=== PATIENT | female | born 1990 | race Caucasian/White ===

== ENCOUNTER 2018-08-18 05:15 | Inpatient (IN) | payer BC ==
[2018-08-18] MEDS ORDERED: ONDANSETRON HCL IV 4 MG/2 ML VIAL IVP ONE (05:40)
[2018-08-18] MEDS ORDERED: MORPHINE SULFATE 10 MG/ML VIAL IVP ONE (05:40)
[2018-08-18 05:44] LABS: BASO % 0.2 % (0-6); EOS % 0.8 % (0-6); GRAN % 77.8 % (47-80); HEMATOCRIT 42.4 % (35.0-47.0); HEMOGLOBIN 15.2 gm/dl (11.6-16.0); LYMPH % 14.3 % (16-45); MEAN CELL VOLUME 90.8 fl (81-97); MEAN CORPUSCULAR HEMOGLOBIN 32.5 pg (27-33); MEAN CORPUSCULAR HGB CONC 35.8 g/dl (32-36); MEAN PLATELET VOLUME 9.3 fl (7.4-10.4); MONO % 6.9 % (0-9); PLATELET COUNT 333 K/uL (130-400); RED BLOOD COUNT 4.67 M/uL (3.80-5.40); RED CELL DISTRIBUTION WIDTH 12.5 % (11.5-14.5); WHITE BLOOD COUNT W/O DIFF 13.9 K/uL (4.2-12.2)
[2018-08-18] MEDS ORDERED: 0.9 % SODIUM CHLORIDE 1000ML 1,000 ML IV SCH (05:45)
--- NOTE | 2018-08-18 05:45 | Emergency Department Record ---
History of Present Illness - General Chief Complaint: Abdominal Pain Stated Complaint: ABDOMINAL PAIN Time Seen by Provider: 08/18/18 05:36 Source: Patient Mode of Arrival: Ambulatory Limitations: No limitations - History of Present Illness Initial Comments: 28 yo female presents to ED for evaluation of RUQ abdominal pain that began approximately 6 hours ago associated with loose stools. Patient denies fevers, chills, or urinary symptoms, reports history of previous cholecystectomy. Patient denies health problems at her baseline and denies previous history of kidney stones. MD Complaint: Abdominal pain Onset/Timin -: Hour(s) Location: RUQ Radiation: Back, Chest, Other Severity scale (1-10): 9 Quality: Fullness Consistency: Constant, Getting worse Improves With: Nothing Worsens With: Movement Associated Symptoms: Nausea - Related Data Patient : No Home Medications Medication Instructions Recorded Confirmed Last Taken Diclofenac Sodium 1 applic TOP DAILY PRN 08/18/18 08/18/18 Unknown Duloxetine HCl [Cymbalta] 60 mg PO DAILY 08/18/18 08/18/18 Unknown Hydroxyzine HCl 25 mg PO BID 08/18/18 08/18/18 Unknown Propranolol HCl 40 mg PO BID 08/18/18 08/18/18 Unknown Previous Rx's Medication Instructions Recorded Hyoscyamine Sulfate [Levsin-Sl] 0.25 mg SL Q8H PRN #15 tab.subl 08/18/18 Allergies Allergy/AdvReac Type Severity Reaction Status Date / Time amoxicillin Allergy HIVES Verified 08/18/18 05:23 clavulanic acid Allergy HIVES Verified 08/18/18 05:23 [From Augmentin] Travel Screening - Travel/Exposure Within Last 30 Days Have you traveled within the last 30 days?: No - Travel Symptoms Symptom Screening: None Review of Systems Constitutional: Denies: Chills, Fever, Malaise, Night sweats Eyes: Denies: Eye discharge, Eye pain ENT: Denies: Congestion, Ear pain, Epistaxis Respiratory: Denies: Cough, Dyspnea Cardiovascular: Denies: Chest pain, Dyspnea on exertion Endocrine: Denies: Fatigue, Heat or cold intolerance Gastrointestinal: Reports: Abdominal pain, Diarrhea, Nausea. Denies: Vomiting Genitourinary: Denies: Incontinence, Retention Musculoskeletal: Reports: Back pain. Denies: Arthralgia Skin: Denies: Bruising, Change in color Neurological: Denies: Abnormal gait, Confusion, Headache, Seizure Psychiatric: Denies: Anxiety Hematological/Lymphatic: Denies: Anemia, Blood Clots Past Medical History - SOCIAL HISTORY Smoking Status: Never smoker Alcohol Use: Occasional Drug Use: None - RESPIRATORY Hx Respiratory Disorders: No - CARDIOVASCULAR Hx Cardio Disorders: No - NEURO Hx Neuro Disorders: Yes Hx Headaches: Yes - GI Hx GI Disorders: No - Hx Genitourinary Disorders: Yes Comment:: Ovarian cysts - MUSCULOSKELETAL Hx Musculoskeletal Disorders: Yes Hx Fibromyalgia: Yes Comment:: HODGE - PSYCH Hx Psych Problems: Yes Hx Anxiety: Yes Hx Depression: Yes - HEMATOLOGY/ONCOLOGY Hx Hematology/Oncology Disorders: No Family Medical History Any Significant Family History?: Yes Hx HTN: Father, Grandparents Physical Exam - General General Appearance: Alert, Oriented x3, Cooperative, Moderate distress (appears uncomfortable due to her pain symptoms) Limitations: No limitations - Head Head exam: Atraumatic, Normocephalic, Normal inspection Head exam detail: negative: Abrasion, Contusion, Macias's sign, General tenderness, Hematoma, Laceration - Eye Eye exam: Normal appearance. negative: Conjunctival injection, Periorbital swelling, Periorbital tenderness, Scleral icterus - ENT Ear exam: negative: Auricular hematoma, Auricular trauma Nasal Exam: negative: Active bleeding, Discharge, Dried blood, Foreign body Mouth exam: negative: Drooling, Laceration, Muffled voice, Tongue elevation - Neck Neck exam: Normal inspection. negative: Meningismus, Tenderness - Respiratory Respiratory exam: Normal lung sounds bilaterally. negative: Rales, Respiratory distress, Rhonchi, Stridor - Cardiovascular Cardiovascular Exam: Regular rate, Normal rhythm, Normal heart sounds - GI/Abdominal GI/Abdominal exam: Soft, Tenderness (TTP RUQ, epigastric region on examination) . negative: Rebound, Rigid - Rectal Rectal exam: Deferred - exam: Deferred - Extremities Extremities exam: Normal inspection. negative: Pedal edema, Tenderness - Back Back exam: Denies: CVA tenderness (R), CVA tenderness (L) - Neurological Neurological exam: Alert, Normal gait, Oriented X3 - Psychiatric Psychiatric exam: Normal affect, Normal mood - Skin Skin exam: Normal color. negative: Abrasion Type of lesion: negative: abrasion Course Vital Signs 08/18/18 05:21 Pulse Rate [ 105 H Pulse Ox Probe] Respiratory 24 Rate Blood Pressure 159/129 [Left Arm] Pulse Ox 94 L - Reevaluation(s) Reevaluation #1: 08/18/18 06:08 Laboratory studies were reviewed, WBC 13.9, labs are otherwise grossly unremarkable for an acute process. Reevaluation #2: 08/18/18 06:36 CT Abdomen and Pelvis: Mildly prominent non-specific fluid-filled loops of bowel without bowel wall thickening Findings are c/w enteritis No loculated fluid collection is present Patient was updated on her results, reports improvement in her symptoms. Will await UA result and reassess. Reevaluation #3: 08/18/18 07:27 Urinalysis was reviewed and appears negative for an acute process. Patient reports that her pain and nausea symptoms are beginning to return, will discuss admission with Meg Prieto NP. Reevaluation #4: 08/18/18 07:46 Case was discussed with Meg Prieto NP, will accept admission at this time. Medical Decision Making - Lab Data Result diagrams: 08/18/18 05:28 08/18/18 05:28 Disposition Disposition: Admit Clinical Impression: Enteritis Disposition: Still a Patient at [facility] Decision to Admit: Admit from ER Decision to Admit Date: 08/18/18 Decision to Admit Time: 07:30 Condition: (2) Stable Instructions: Enteritis (ED) Prescriptions: Hyoscyamine Sulfate [Levsin-Sl] 0.25 mg SL Q8H PRN #15 tab.subl PRN Reason: Abdominal Pain Forms: Patient Portal Access Time of Disposition: 07:47 Quality - Quality Measures Quality Measures: N/A - Blood Pressure Screening Does Patient Have Any of the Following: No Blood Pressure Classification: Pre-Hypertensive BP Reading Systolic Measurement: 124 Diastolic Measurement: 84 Screening for High Blood Pressure: < Pre-Hypertensive BP, F/U Documented > [ [id number]] Pre-Hypertensive Follow-up Interventions: Referral to alternative/primary care provider.
[2018-08-18 05:57] LABS: BLOOD UREA NITROGEN 15 mg/dL (6-20); CREATININE 0.7 mg/dL (0.5-0.9); EST GLOMERULAR FILTRATION RATE > 60 mL/min
[2018-08-18 05:58] LABS: LIPASE 39 U/L (13-60); TOTAL PROTEIN 7.9 g/dL (6.6-8.7)
[2018-08-18 06:00] LABS: GLUCOSE,RANDOM 97 mg/dL (74-109)
[2018-08-18 06:03] LABS: ALB/GLOB RATIO 1.4 (1.1-1.8); ALBUMIN 4.6 g/dL (4.0-5.0); ALKALINE PHOSPHATASE 67 U/L (45-87); ALT/SGPT 20 U/L (<33); AST/SGOT 19 U/L (10.0-35.0)
[2018-08-18] MEDS ORDERED: HYDROMORPHONE HCL 2 MG/ML VIAL IVP ONE ×2 (06:17→07:33)
[2018-08-18 07:25] LABS: URINE APPEARANCE CLEAR; URINE BILIRUBIN NEGATIVE (NEGATIVE); URINE BLOOD NEGATIVE (NEGATIVE); URINE COLOR YELLOW; URINE GLUCOSE (UA) NEGATIVE (NEGATIVE); URINE KETONE NEGATIVE (NEGATIVE); URINE LEUKOCYTE ESTERASE NEGATIVE (NEGATIVE); URINE NITRITE NEGATIVE (NEGATIVE); URINE PROTEIN NEGATIVE (NEGATIVE); URINE UROBILINOGEN 0.2 E.U./dL (0.20 - 1.00)
[2018-08-18 07:26] LABS: HCG,QUALITATIVE URINE NEGATIVE (NEGATIVE)
[2018-08-18] MEDS ORDERED: HYDROMORPHONE HCL 2 MG/ML VIAL IV PRN (09:10)
[2018-08-18] MEDS: ONDANSETRON HCL IV 4 MG/2 ML VIAL IVP PRN ×3 (09:21→16:30)
[2018-08-18] MEDS: 0.9 % SODIUM CHLORIDE 1000ML 1,000 ML IV PRN ×2 (09:26→22:23)
--- NOTE | 2018-08-18 11:39 | History & Physical ---
History of Present Illness - Date of Service Date of Service for History & Physical: 08/18/18 - History of Present Illness Admitting Diagnosis: Abdominal pain. Enteritis History of Present Illness: 28 year old female patient presented to ED with acute onset RUQ and epigastric abdominal pain. Patient reported that the pain began around 11pm with one episode of loose, watery stool. Patient reported feeling "off" all day yesterday, with no specific complaints. Denies any fever, chills, urinary symptoms, nausea, or shortness of breath. Patient had no episodes of vomiting. Patient's past medical history includes a cholecystectomy at age 17, postural tachycardia syndrome, anxiety, and depression PCP: Dr. Kelly ED Course: WBC 13.9, lipase 39, electrolytes WNL CT Abd/Pelvis: mildly prominent non-specific fluid-filled loops of bowel without bowel wall thickening consistent with enteritis, no loculated fluid collection. No biliary duct stones, pancreas nml Pain did not improve with Morphine, received Dilaudid 0.5mg x 2 08/18/18: Patient A&O x 4, resting comfortably on bed with mother at bedside. Patient had 1 episode of vomiting this morning, received Zofran IVP. Continues to have RUQ pain to palpation 01/27, will continue with pain control with Dilaudid 0.5mg IVP prn. IV fluids for hydration and will continue to monitor at this time. Travel Screening - Travel/Exposure Within Last 30 Days Have you traveled within the last 30 days?: No - Travel/Exposure Within Last Year Have you traveled outside the [place] in the last year?: No - Additonal Travel Details Have you been exposed to anyone with a communicable illness?: No - Travel Symptoms Symptom Screening: Diarrhea, Vomiting, Stomach Pain Review of Systems Reviewed: No additional complaints except as noted below Constitutional: Denies: Chills, Fever, Malaise, Night sweats Eyes: Denies: Eye discharge, Eye pain ENT: Denies: Congestion, Ear pain, Epistaxis Respiratory: Denies: Cough, Dyspnea Cardiovascular: Denies: Chest pain, Dyspnea on exertion Endocrine: Denies: Fatigue, Heat or cold intolerance Gastrointestinal: Reports: Abdominal pain, Diarrhea, Nausea. Denies: Vomiting Genitourinary: Denies: Incontinence, Retention Musculoskeletal: Reports: Back pain. Denies: Arthralgia Skin: Denies: Bruising, Change in color Neurological: Denies: Abnormal gait, Confusion, Headache, Seizure Psychiatric: Denies: Anxiety Hematological/Lymphatic: Denies: Anemia, Blood Clots Past Medical History - SOCIAL HISTORY Smoking Status: Never smoker - RESPIRATORY Hx Respiratory Disorders: No - CARDIOVASCULAR Hx Cardio Disorders: Yes Comment:: POTS-postural tachycardia syndrome - NEURO Hx Neuro Disorders: Yes Hx Headaches: Yes - GI Hx GI Disorders: No - Hx Genitourinary Disorders: Yes Comment:: Ovarian cysts - ENDOCRINE Hx Endocrine Disorders: No - MUSCULOSKELETAL Hx Musculoskeletal Disorders: Yes Hx Fibromyalgia: Yes Comment:: HODGE - PSYCH Hx Psych Problems: Yes Hx Anxiety: Yes Hx Depression: Yes - HEMATOLOGY/ONCOLOGY Hx Hematology/Oncology Disorders: No Family Medical History Any Significant Family History?: Yes Hx HTN: Father, Grandparents H&P Meds/Allergies - Allergies Allergies: Allergies Allergy/AdvReac Type Severity Reaction Status Date / Time amoxicillin Allergy HIVES Verified 08/18/18 05:23 clavulanic acid Allergy HIVES Verified 08/18/18 05:23 [From Augmentin] - Home Medications Home Medications Medication Instructions Recorded Confirmed Last Taken Diclofenac Sodium 1 applic TOP DAILY PRN 08/18/18 08/18/18 Unknown Duloxetine HCl [Cymbalta] 60 mg PO DAILY 08/18/18 08/18/18 Unknown Hydroxyzine HCl 25 mg PO BID 08/18/18 08/18/18 Unknown Propranolol HCl 40 mg PO BID 08/18/18 08/18/18 Unknown Previous Rx's Medication Instructions Recorded Hyoscyamine Sulfate [Levsin-Sl] 0.25 mg SL Q8H PRN #15 tab.subl 08/18/18 - Active Medications Active Medications: Current Medications Duloxetine HCl (Cymbalta) 60 mg PO DAILY [facility] Hydromorphone HCl (Dilaudid) 0.5 mg IV Q2H PRN PRN Reason: ABDOMINAL PAIN Hydroxyzine Pamoate (Vistaril) 25 mg PO BID [facility] Sodium Chloride () 1,000 mls @ 100 mls/hr IV .Q10H PRN PRN Reason: LARGE VOLUME IV Last Admin: 08/18/18 09:26 Dose: 100 mls/hr Ondansetron HCl (Zofran) 4 mg IVP Q4H PRN PRN Reason: NAUSEA Last Admin: 08/18/18 09:21 Dose: 4 mg Propranolol HCl (Inderal) 40 mg PO BID [facility] Ranitidine HCl (Zantac) 150 mg PO DAILY [facility] Physical Exam - Vital Signs Vital Signs: Vital Signs - Last 24 Hrs Temp Pulse Resp BP Pulse Ox 08/18/18 09:00 98.0 F 96 H 18 121/81 94 L 08/18/18 08:58 97.6 F 96 H 20 123/87 99 08/18/18 07:40 98 H 18 124/84 100 08/18/18 06:58 93 H 16 121/83 100 08/18/18 06:16 97.6 F 85 24 126/79 100 08/18/18 05:21 105 H 24 159/129 94 L - General General Appearance: Alert, Oriented x3, Cooperative, No acute distress Limitations: No limitations - Head Head exam: Atraumatic, Normocephalic, Normal inspection Head exam detail: negative: Abrasion, Contusion, Macias's sign, General tenderness, Hematoma, Laceration - Eye Eye exam: Normal appearance. negative: Conjunctival injection, Periorbital swelling, Periorbital tenderness, Scleral icterus - ENT ENT exam: Mucous membranes moist Ear exam: negative: Auricular hematoma, Auricular trauma Nasal Exam: negative: Active bleeding, Discharge, Dried blood, Foreign body Mouth exam: Normal external inspection. negative: Drooling, Laceration, Muffled voice, Tongue elevation - Neck Neck exam: Normal inspection. negative: Meningismus, Tenderness - Respiratory Respiratory exam: Normal lung sounds bilaterally. negative: Rales, Respiratory distress, Rhonchi, Stridor - Cardiovascular Cardiovascular Exam: Regular rate, Normal rhythm, Normal heart sounds Peripheral Pulses: 2+: Radial (R), Radial (L), Dorsalis Pedis (R), Dorsalis Pedis (L) - GI/Abdominal GI/Abdominal exam: Soft, Tenderness (TTP RUQ, epigastric region on examination) . negative: Rebound, Rigid - Rectal Rectal exam: Deferred - exam: Deferred - Extremities Extremities exam: Normal inspection. negative: Pedal edema, Tenderness - Back Back exam: Denies: CVA tenderness (R), CVA tenderness (L) - Neurological Neurological exam: Alert, Normal gait, Oriented X3 - Psychiatric Psychiatric exam: Normal affect, Normal mood - Skin Skin exam: Normal color. negative: Abrasion Type of lesion: negative: abrasion Results - Labs Result Diagrams: 08/18/18 05:28 08/18/18 05:28 Labs Last 24 Hours: Laboratory Results - last 24 hr 08/18/18 08/18/18 08/18/18 05:28 05:28 07:15 WBC 13.9 H RBC 4.67 Hgb 15.2 Hct 42.4 MCV 90.8 MCH 32.5 MCHC 35.8 RDW 12.5 Plt Count 333 MPV 9.3 Gran % 77.8 Lymphocytes % 14.3 L Monocytes % 6.9 Eosinophils % 0.8 Basophils % 0.2 Sodium 137 Potassium 4.5 Chloride 103 Carbon Dioxide 18.0 L Anion Gap 16.0 BUN 15 Creatinine 0.7 Estimated GFR > 60 Random Glucose 97 Calcium 9.8 Total Bilirubin 0.40 AST 19 ALT 20 Alkaline Phosphatase 67 Total Protein 7.9 Albumin 4.6 Globulin 3.3 Albumin/Globulin Ratio 1.4 Lipase 39 Urine Color Yellow Urine Appearance Clear Urine pH 7.5 Ur Specific [place] <= 1.005 Urine Protein Negative Urine Glucose (UA) Negative Urine Ketones Negative Urine Blood Negative Urine Nitrite Negative Urine Bilirubin Negative Urine Urobilinogen 0.2 Ur Leukocyte Esterase Negative Urine HCG, Qual Negative VTE H&P Assessment - Risk for VTE Risk for VTE: No Risk Level: Low Risk Assessment Date: 08/18/18 Risk Assessment Time: 11:42 VTE Orders Placed or Will Be Placed: No VTE Reason for No Prophylaxis: Not Indicated Plan - Detailed Diagnosis and Plan (1) Enteritis Current Visit: Yes Status: Acute Base Code: K52.9 - NONINFECTIVE GASTROENTERITIS AND COLITIS, UNSPECIFIED Comment: 08/18/18: RUQ and epigastric abdominal pain with 1 episode of diarrhea -Abd/pelvic CT: fluid-filled loops of bowel consistent with enteritis -WBC 13.9, lipase 39, electrolytes WNL -Continue pain control with Dilaudid 0.5mg q2h prn -Zofrn 4mg IVP prn q6h nausea -Clear liquids (2) DVT prophylaxis Current Visit: Yes Status: Acute Base Code: [id number] - Comment: 08/18/18: -Low risk due to age and anticipated short duration of hospitalization -Encourage continued ambulation (3) Full code status Current Visit: Yes Status: Acute Base Code: Z78.9 - OTHER SPECIFIED HEALTH STATUS Comment: 08/18/18: Full code status
--- NOTE | 2018-08-18 12:30 | CT SCAN REPORT ---
EXAM: CT SCAN OF THE ABDOMEN AND PELVIS WITH CONTRAST HISTORY: RIGHT UPPER QUADRANT ABDOMINAL PAIN SINCE 11:00 P.M. YESTERDAY. TECHNIQUE: Standard CT imaging of the abdomen and pelvis was performed with intravenous contrast. 100 ml of Omnipaque 300 were administered. Comparison: 03/10/18. FINDINGS: The lung bases are clear. The liver parenchyma is normal. The gallbladder is surgically absent. There is minor prominence of the intrahepatic biliary tree which is likely physiologic status post cholecystectomy. There are no calcified biliary duct stones. The pancreas is normal. The spleen, adrenal glands, kidneys and ureters are normal. The aorta is normal in caliber. There is no retroperitoneal lymphadenopathy. The stomach is mildly distended with ingested fluid and foot material. There are no focal abnormalities. Fluid filled small bowel loops are present within the mid abdomen and pelvis. The colon is also fluid filled from the cecum through the splenic flexure regions. There is no associated bowel wall thickening or inflammation. There is no pneumoperitoneum or ascites. The uterus and adnexa appear normal. The urinary bladder is unremarkable. The abdominal wall is normal. There are no acute osseous abnormalities. IMPRESSION: 1. NO ACUTE INTRAABDOMINAL PATHOLOGY. 2. FLUID FILLED LARGE AND SMALL BOWEL LOOPS WHICH MAY INDICATE ENTERITIS. THERE ARE NO ASSOCIATED INFLAMMATORY CHANGES. 3. STATUS POST CHOLECYSTECTOMY. JOB NUMBER: [id number] [facility]
[2018-08-18] MEDS: HYDROMORPHONE HCL 2 MG/ML VIAL IV PRN ×3 (12:54→19:51)
[2018-08-18] MEDS: DULOXETINE HCL 30 MG CAPSULE.DR PO SCH (13:00)
[2018-08-18] MEDS: PROPRANOLOL HCL 10 MG TABLET PO SCH ×2 (13:01→22:21)
[2018-08-18] MEDS: RANITIDINE HCL 150 MG TABLET PO SCH (13:01)
[2018-08-18] MEDS: HYDROXYZINE PAMOATE 25 MG CAPSULE PO SCH ×2 (13:01→22:21)
[2018-08-18] MEDS: METOCLOPRAMIDE HCL 10 MG/2 ML VIAL IVP PRN (19:47)
[2018-08-19] MEDS: ONDANSETRON HCL IV 4 MG/2 ML VIAL IVP PRN ×4 (02:21→19:30)
[2018-08-19] MEDS: HYDROMORPHONE HCL 2 MG/ML VIAL IV PRN ×5 (02:22→19:25)
[2018-08-19] MEDS: 0.9 % SODIUM CHLORIDE 1000ML 1,000 ML IV PRN ×2 (05:31→16:28)
[2018-08-19 06:50] LABS: BASO % 0.2 % (0-6); EOS % 0.7 % (0-6); GRAN % 72.4 % (47-80); HEMATOCRIT 36.6 % (35.0-47.0); HEMOGLOBIN 12.3 gm/dl (11.6-16.0); LYMPH % 17.4 % (16-45); MEAN CELL VOLUME 93.4 fl (81-97); MEAN CORPUSCULAR HEMOGLOBIN 31.4 pg (27-33); MEAN CORPUSCULAR HGB CONC 33.6 g/dl (32-36); MEAN PLATELET VOLUME 9.4 fl (7.4-10.4); MONO % 9.3 % (0-9); PLATELET COUNT 234 K/uL (130-400); RED BLOOD COUNT 3.92 M/uL (3.80-5.40); RED CELL DISTRIBUTION WIDTH 12.6 % (11.5-14.5); WHITE BLOOD COUNT W/O DIFF 4.6 K/uL (4.2-12.2)
[2018-08-19 07:08] LABS: ALB/GLOB RATIO 1.3 (1.1-1.8); ALBUMIN 3.3 g/dL (4.0-5.0); ALKALINE PHOSPHATASE 103 U/L (45-87); ALT/SGPT 115 U/L (<33); AST/SGOT 114 U/L (10.0-35.0); BLOOD UREA NITROGEN 5 mg/dL (6-20); CREATININE 0.6 mg/dL (0.5-0.9); EST GLOMERULAR FILTRATION RATE > 60 mL/min; GLUCOSE,RANDOM 111 mg/dL (74-109); TOTAL PROTEIN 5.9 g/dL (6.6-8.7)
[2018-08-19] MEDS ORDERED: DICYCLOMINE HCL 10 MG CAPSULE PO PRN (09:06)
[2018-08-19] MEDS: HYDROXYZINE PAMOATE 25 MG CAPSULE PO SCH ×2 (09:51→21:27)
[2018-08-19] MEDS: RANITIDINE HCL 150 MG TABLET PO SCH (09:51)
[2018-08-19] MEDS: PROPRANOLOL HCL 10 MG TABLET PO SCH ×2 (09:52→21:26)
[2018-08-19] MEDS: DULOXETINE HCL 30 MG CAPSULE.DR PO SCH (09:52)
[2018-08-19] MEDS: METOCLOPRAMIDE HCL 10 MG/2 ML VIAL IVP PRN (11:56)
--- NOTE | 2018-08-19 13:14 | Physician Progress Note ---
Subjective - Date Date of Physician Progress Note: 08/19/18 - Subjective Subjective Comment: 28 year old female, A&O x 4, resting comfortably in bed with family at bedside. Patient reports continued intermittent RUQ abdominal pain. CT abd/pelvis indicated enteritis. AST/ALT elevated today, with normal bilirubin and elevated alk phos. RUQ abdominal ultrasound findings include normal common bile duct with an 11mm hypogenic lesion on right lobe of liver, consistent with a benign hemangioma. Patient continues to have abdominal pain despite treatment with Dilaudid 0.5mg prn. Patient remains on clear liquids, zofran prn. Discussed case with Dr. Briones, general surgery, who does not see any need for surgical intervention with patient's case. Advised continued monitoring of serial liver enzymes and checking a hepatitis panel. Location: Abdomen Radiation: Back Severity scale (1-10): 8 Quality: Sharp Improves with: Medication Objective - Vital Signs Vital Signs: Vital Signs - Last 24 Hrs Temp Pulse Resp BP Pulse Ox 08/19/18 08:45 18 08/19/18 06:00 98.7 F 94 H 18 117/74 96 08/18/18 20:55 14 08/18/18 20:00 98.6 F 109 H 18 124/80 97 - General General Appearance: Alert, Oriented x3, Cooperative, No acute distress Limitations: No limitations - Head Head exam: Atraumatic, Normocephalic, Normal inspection Head exam detail: negative: Abrasion, Contusion, Macias's sign, General tenderness, Hematoma, Laceration - Eye Eye exam: Normal appearance. negative: Conjunctival injection, Periorbital swelling, Periorbital tenderness, Scleral icterus - ENT ENT exam: Mucous membranes moist Ear exam: negative: Auricular hematoma, Auricular trauma Nasal Exam: negative: Active bleeding, Discharge, Dried blood, Foreign body Mouth exam: Normal external inspection. negative: Drooling, Laceration, Muffled voice, Tongue elevation - Neck Neck exam: Normal inspection. negative: Meningismus, Tenderness - Respiratory Respiratory exam: Normal lung sounds bilaterally. negative: Rales, Respiratory distress, Rhonchi, Stridor - Cardiovascular Cardiovascular Exam: Regular rate, Normal rhythm, Normal heart sounds Peripheral Pulses: 2+: Radial (R), Radial (L), Dorsalis Pedis (R), Dorsalis Pedis (L) - GI/Abdominal GI/Abdominal exam: Soft, Hypoactive bowel sounds, Tenderness (TTP RUQ, epigastric region on examination). negative: Rebound, Rigid - Rectal Rectal exam: Deferred - exam: Deferred - Extremities Extremities exam: Normal inspection. negative: Pedal edema, Tenderness - Back Back exam: Denies: CVA tenderness (R), CVA tenderness (L) - Neurological Neurological exam: Alert, Normal gait, Oriented X3 - Psychiatric Psychiatric exam: Normal affect, Normal mood - Skin Skin exam: Normal color. negative: Abrasion Type of lesion: negative: abrasion Assessment and Plan - Assessment and Plan (1) Enteritis Current Visit: Yes Status: Acute Base Code: K52.9 - NONINFECTIVE GASTROENTERITIS AND COLITIS, UNSPECIFIED Comment: 08/19/18: RUQ and epigastric abdominal pain with 1 episode of diarrhea -Abd/pelvic CT: fluid-filled loops of bowel consistent with enteritis -WBC 4.6, lipase 39, electrolytes WNL -AST/ALT elevated to 114/115 today, normal bilirubin, Alk phos elevated to 113 -Afebrile, all other vital signs WNL -Continue pain control with Dilaudid 0.5mg q2h prn -Bentyl 10mg PO TID prn -Zofrn 4mg IVP prn q6h nausea -Clear liquids (2) RUQ abdominal pain Current Visit: Yes Status: Acute Base Code: R10.11 - RIGHT UPPER QUADRANT PAIN Comment: 08/19/18: RUQ and epigastric abdominal pain with 1 episode of diarrhea -Abd/pelvic CT: fluid-filled loops of bowel consistent with enteritis -WBC 4.6, lipase 39, electrolytes WNL -AST/ALT elevated to 114/115 today, normal bilirubin, Alk phos elevated to 113 -RUQ US: common bile duct nml, 11mm hypogenic lesion on R liver lobe, likely benign hemangioma -Discussed case with Dr. Briones, no acute surgical needs at this time -Will check hepatitis panel and draw serial liver enzymes -Afebrile, all other vital signs WNL -Continue pain control with Dilaudid 0.5mg q2h prn -Bentyl 10mg PO TID prn -Zofrn 4mg IVP prn q6h nausea -Clear liquids (3) DVT prophylaxis Current Visit: Yes Status: Acute Base Code: [id number] - Comment: 08/19/18: -moderate risk due to age and hospitalization -Lovenox 40mg SQ (4) Full code status Current Visit: Yes Status: Acute Base Code: Z78.9 - OTHER SPECIFIED HEALTH STATUS Comment: 08/19/18: Full code status Results - Labs Result Diagrams: 08/19/18 06:15 08/19/18 06:15 Labs Last 24 Hours: Laboratory Results - last 24 hr 08/19/18 08/19/18 06:15 06:15 WBC 4.6 RBC 3.92 Hgb 12.3 Hct 36.6 MCV 93.4 MCH 31.4 MCHC 33.6 RDW 12.6 Plt Count 234 MPV 9.4 Gran % 72.4 Lymphocytes % 17.4 Monocytes % 9.3 H Eosinophils % 0.7 Basophils % 0.2 Sodium 137 Potassium 3.7 Chloride 104 Carbon Dioxide 23.0 Anion Gap 10.0 BUN 5 L Creatinine 0.6 Estimated GFR > 60 Random Glucose 111 H Calcium 8.1 L Total Bilirubin 1.00 AST 114 H ALT 115 H Alkaline Phosphatase 103 H Total Protein 5.9 L Albumin 3.3 L Globulin 2.6 Albumin/Globulin Ratio 1.3 DVT/PE Assessment - Risk for VTE Risk for VTE: No Risk Level: Low Risk Assessment Date: 08/18/18 Risk Assessment Time: 11:42 VTE Orders Placed or Will Be Placed: No VTE Reason for No Prophylaxis: Not Indicated - Active Medicaitons Current Medications: Current Medications Dicyclomine HCl (Bentyl) 10 mg PO TID PRN PRN Reason: ABDOMINAL PAIN Duloxetine HCl (Cymbalta) 60 mg PO DAILY [facility] Last Admin: 08/19/18 09:52 Dose: 60 mg Hydromorphone HCl (Dilaudid) 0.5 mg IV Q2H PRN PRN Reason: ABDOMINAL PAIN Last Admin: 08/19/18 11:56 Dose: 0.5 mg Hydroxyzine Pamoate (Vistaril) 25 mg PO BID [facility] Last Admin: 08/19/18 09:51 Dose: 25 mg Sodium Chloride () 1,000 mls @ 100 mls/hr IV .Q10H PRN PRN Reason: LARGE VOLUME IV Last Admin: 08/19/18 05:31 Dose: 100 mls/hr Metoclopramide HCl (Reglan) 10 mg IVP Q8HR PRN PRN Reason: NAUSEA/VOMITING Last Admin: 08/19/18 11:56 Dose: 10 mg Ondansetron HCl (Zofran) 4 mg IVP Q4H PRN PRN Reason: NAUSEA Last Admin: 08/19/18 07:32 Dose: 4 mg Propranolol HCl (Inderal) 40 mg PO BID [facility] Last Admin: 08/19/18 09:52 Dose: 40 mg Ranitidine HCl (Zantac) 150 mg PO DAILY [facility] Last Admin: 08/19/18 09:51 Dose: 150 mg AMI Plan - Labs Result Diagrams: 08/19/18 06:15 08/19/18 06:15
--- NOTE | 2018-08-19 13:17 | Inpatient Certification ---
Inpatient Certification Admit to inpatient care: Based on my medical assessment, after consideration of patient's risk factors (age, co-morbidities and patient presenting symptoms and acuity), I expect that this patient will remain in the hospital greater than or equal to two midnights and that the services needed warrant inpatient care because: Patient Risk Factors: [intractable abdominal pain, enteritis, elevated liver enzymes ] Estimated length of stay: The patient may reasonably be expected to be discharged or transferred to a hospital within 36-96 hours after admission to [facility]. Services needed: [IV hydration, IV pain medication, serial lab monitoring] Post hospital care (if known): [] I certify that my determination is in accordance with my understanding of Medicare requirements for reasonable and necessary inpatient services. 08/19/18 13:16
[2018-08-20] MEDS: ONDANSETRON HCL IV 4 MG/2 ML VIAL IVP PRN ×3 (05:15→14:41)
[2018-08-20 06:56] LABS: BASO % 0.3 % (0-6); EOS % 2.6 % (0-6); GRAN % 43.1 % (47-80); LYMPH % 39.9 % (16-45); MEAN CELL VOLUME 94.5 fl (81-97); MEAN CORPUSCULAR HEMOGLOBIN 31.5 pg (27-33); MEAN CORPUSCULAR HGB CONC 33.3 g/dl (32-36); MEAN PLATELET VOLUME 9.7 fl (7.4-10.4); MONO % 14.1 % (0-9); PLATELET COUNT 234 K/uL (130-400); RED BLOOD COUNT 3.81 M/uL (3.80-5.40); RED CELL DISTRIBUTION WIDTH 12.8 % (11.5-14.5); WHITE BLOOD COUNT W/O DIFF 3.1 K/uL (4.2-12.2)
[2018-08-20 07:12] LABS: ALB/GLOB RATIO 1.4 (1.1-1.8); ALBUMIN 3.5 g/dL (4.0-5.0); ALKALINE PHOSPHATASE 118 U/L (45-87); ALT/SGPT 115 U/L (<33); AST/SGOT 70 U/L (10.0-35.0); BLOOD UREA NITROGEN 4 mg/dL (6-20); CREATININE 0.7 mg/dL (0.5-0.9); EST GLOMERULAR FILTRATION RATE > 60 mL/min; GLUCOSE,RANDOM 107 mg/dL (74-109)
--- NOTE | 2018-08-20 07:30 | ULTRASOUND REPORT ---
EXAM: LIMITED ABDOMEN ULTRASOUND HISTORY: RIGHT UPPER QUADRANT ABDOMINAL PAIN. TECHNIQUE: Right upper quadrant abdomen ultrasound was obtained. Comparison: Multiple prior CT and ultrasound of the abdomen and pelvis, most recent CT dated 08/18/18 and most recent ultrasound dated 10/17/17. FINDINGS: A solid well circumscribed echogenic lesion in the right hepatic lobe measuring up to 11 mm, otherwise unremarkable appearance of the visualized hepatic parenchyma. The gallbladder is not seen consistent with surgical history. The common bile duct measures up to 3 mm, within normal limits. Flow is demonstrated in the main portal vein. Unremarkable limited colbert scale appearance of the inferior vena cava at the level of the liver. IMPRESSION: 1. SMALL ECHOGENIC LESION IN THE RIGHT HEPATIC LOBE. THERE IS A POSSIBLE CORRESPONDING SUBTLE FOCUS OF HETEROGENEOUS ENHANCEMENT ON RECENT CT OF THE ABDOMEN AND PELVIS. THE APPEARANCE IS NONSPECIFIC, BUT MOST SUGGESTIVE OF A BENIGN HEMANGIOMA. FOLLOW-UP ULTRASOUND COULD BE OBTAINED IN APPROXIMATELY SIX MONTHS TO ESTABLISH STABILITY. 2. OTHERWISE, UNREMARKABLE RIGHT UPPER QUADRANT ULTRASOUND. JOB NUMBER: [id number] MTDD
[2018-08-20] MEDS ORDERED: ENOXAPARIN 40 MG/0.4 ML SYR SQ SCH (10:00)
[2018-08-20] MEDS ORDERED: HYDROCODONE/APAP 5/325MG TABLET PO PRN (10:13)
[2018-08-20] MEDS: DULOXETINE HCL 30 MG CAPSULE.DR PO SCH (10:39)
[2018-08-20] MEDS: HYDROXYZINE PAMOATE 25 MG CAPSULE PO SCH (10:40)
[2018-08-20] MEDS: PROPRANOLOL HCL 10 MG TABLET PO SCH (10:40)
[2018-08-20] MEDS: RANITIDINE HCL 150 MG TABLET PO SCH (10:41)
--- NOTE | 2018-08-20 15:40 | Discharge Summary ---
Providers Discharge Summary Date: 08/20/18 Date of admission: 08/18/18 08:59 Expected Date of Discharge: 08/20/18 Attending physician: CHANTAL CARTER Primary care physician: MITZY MANE D.O. Physical Exam - Vital Signs Vital Signs: Vital Signs - Last 24 Hrs Temp Pulse Resp BP Pulse Ox 08/20/18 14:00 66 16 112/72 100 08/20/18 09:00 18 08/20/18 05:41 67 18 117/74 98 08/19/18 20:39 16 08/19/18 20:00 97.9 F 75 18 112/68 96 - General General Appearance: Alert, Oriented x3, Cooperative, No acute distress Limitations: No limitations - Head Head exam: Atraumatic, Normocephalic, Normal inspection Head exam detail: negative: Abrasion, Contusion, Macias's sign, General tenderness, Hematoma, Laceration - Eye Eye exam: Normal appearance. negative: Conjunctival injection, Periorbital swelling, Periorbital tenderness, Scleral icterus - ENT ENT exam: Mucous membranes moist Ear exam: negative: Auricular hematoma, Auricular trauma Nasal Exam: negative: Active bleeding, Discharge, Dried blood, Foreign body Mouth exam: Normal external inspection. negative: Drooling, Laceration, Muffled voice, Tongue elevation - Neck Neck exam: Normal inspection. negative: Meningismus, Tenderness - Respiratory Respiratory exam: Normal lung sounds bilaterally. negative: Rales, Respiratory distress, Rhonchi, Stridor - Cardiovascular Cardiovascular Exam: Regular rate, Normal rhythm, Normal heart sounds Peripheral Pulses: 2+: Radial (R), Radial (L), Dorsalis Pedis (R), Dorsalis Pedis (L) - GI/Abdominal GI/Abdominal exam: Soft, Normal bowel sounds, Tenderness (mild RUQ TTP). negative: Rebound, Rigid - Rectal Rectal exam: Deferred - exam: Deferred - Extremities Extremities exam: Normal inspection. negative: Pedal edema, Tenderness - Back Back exam: Denies: CVA tenderness (R), CVA tenderness (L) - Neurological Neurological exam: Alert, Normal gait, Oriented X3 - Psychiatric Psychiatric exam: Normal affect, Normal mood - Skin Skin exam: Normal color. negative: Abrasion Type of lesion: negative: abrasion Hospitalization - Hospitalization Admission Diagnosis: Abdominal pain. Enteritis - Problem List/Discharge Diagnosis (1) Enteritis Current Visit: Yes Status: Acute Base Code: K52.9 - NONINFECTIVE GASTROENTERITIS AND COLITIS, UNSPECIFIED Comment: 08/20/18: RUQ and epigastric abdominal pain with 1 episode of diarrhea -Abd/pelvic CT: fluid-filled loops of bowel consistent with enteritis -WBC 4.6, lipase 39, electrolytes WNL -AST/ALT elevated to 75/115 today, normal bilirubin, Alk phos elevated to 118 -Afebrile, all other vital signs WNL -Continue pain control with Dilaudid 0.5mg q2h prn -Bentyl 10mg PO TID prn -Zofrn 4mg IVP prn q6h nausea -Advance diet as tolerated (2) RUQ abdominal pain Current Visit: Yes Status: Acute Base Code: R10.11 - RIGHT UPPER QUADRANT PAIN Comment: 08/20/18: RUQ and epigastric abdominal pain with 1 episode of diarrhea -Abd/pelvic CT: fluid-filled loops of bowel consistent with enteritis -WBC 4.6, lipase 39, electrolytes WNL -AST/ALT elevated to 75/115 today, normal bilirubin, Alk phos elevated to 118; minimal change from yesterday -RUQ US: common bile duct nml, 11mm hypogenic lesion on R liver lobe, likely benign hemangioma -Discussed case with Dr. Briones, no acute surgical needs at this time -Hepatitis panel pending -Afebrile, all other vital signs WNL -Transitioning to [place] 5/325mg q4h prn pain -Bentyl 10mg PO TID prn -Zofrn 4mg IVP prn q6h nausea -Advance diet as tolerated -Patient scheduled to follow-up with GI outpatient tomorrow at 12:45 (3) DVT prophylaxis Current Visit: Yes Status: Acute Base Code: [id number] - Comment: 08/20/18: -moderate risk due to age and hospitalization -Lovenox 40mg SQ while hospitalized -No need for further prophylaxis upon discharge as patient to resume normal activity level (4) Full code status Current Visit: Yes Status: Acute Base Code: Z78.9 - OTHER SPECIFIED HEALTH STATUS Comment: 08/20/18: Full code status - Hospitalization Course Disposition: Home, Self-Care Hospital Course: 28 year old female patient presented to ED with acute onset RUQ and epigastric abdominal pain. Patient reported that the pain began around 11pm with one episode of loose, watery stool. Patient reported feeling "off" all day yesterday, with no specific complaints. Denies any fever, chills, urinary symptoms, nausea, or shortness of breath. Patient had no episodes of vomiting. Patient's past medical history includes a cholecystectomy at age 17, postural tachycardia syndrome, anxiety, and depression PCP: Dr. Mane ED Course: WBC 13.9, lipase 39, electrolytes WNL CT Abd/Pelvis: mildly prominent non-specific fluid-filled loops of bowel without bowel wall thickening consistent with enteritis, no loculated fluid collection. No biliary duct stones, pancreas nml Pain did not improve with Morphine, received Dilaudid 0.5mg x 2 08/18/18: Patient A&O x 4, resting comfortably on bed with mother at bedside. Patient had 1 episode of vomiting this morning, received Zofran IVP. Continues to have RUQ pain to palpation 7/10, will continue with pain control with Dilaudid 0.5mg IVP prn. IV fluids for hydration and will continue to monitor at this time. 08/20/18: Patient A&O x 4, resting comfortably in bed. Pain slightly improved today, rating it 5/10. Pain has been able to be controlled with L[place] at this time, will continue on discharge. Patient has tolerated advancing diet, no further diarrhea or nausea at this time. Patient to follow-up with GI outpatient for elevated liver enzymes and liver hemangioma. Procedures: Imaging and X-Rays 08/18/18 05:36 ABDOMEN/PELVIS W CONTRAST [CT] Stat 08/19/18 08:22 ABDOMEN, LIMITED [US] Stat Abnormal Labs: Abnormal Lab Results 08/18/18 08/18/18 08/19/18 Range/Units 05:28 05:28 06:15 WBC 13.9 H (4.2-12.2) K/uL Gran % (47-80) % Lymphocytes % 14.3 L (16-45) % Monocytes % 9.3 H (0-9) % Carbon Dioxide 18.0 L (22-29) mmol/L BUN (6-20) mg/dL Random Glucose (74-109) mg/dL Calcium (8.6-10.0) mg/dL AST (10.0-35.0) U/L ALT (<33) U/L Alkaline Phosphatase (45-87) U/L Total Protein (6.6-8.7) g/dL Albumin (4.0-5.0) g/dL 08/19/18 08/20/18 08/20/18 Range/Units 06:15 06:10 06:10 WBC 3.1 L (4.2-12.2) K/uL Gran % 43.1 L (47-80) % Lymphocytes % (16-45) % Monocytes % 14.1 H (0-9) % Carbon Dioxide 21.0 L (22-29) mmol/L BUN 5 L 4 L (6-20) mg/dL Random Glucose 111 H (74-109) mg/dL Calcium 8.1 L 8.4 L (8.6-10.0) mg/dL AST 114 H 70 H (10.0-35.0) U/L ALT 115 H 115 H (<33) U/L Alkaline Phosphatase 103 H 118 H (45-87) U/L Total Protein 5.9 L 6.0 L (6.6-8.7) g/dL Albumin 3.3 L 3.5 L (4.0-5.0) g/dL Condition at Discharge: (2) Stable VTE Discharge VTE Reason For No Overlap Therapy: Not Indicated Discharge Medications - Discharge Medications Prescriptions: Hydrocodone/APAP 5/325Mg [[place] 5Mg/325Mg] 1 each PO Q4H PRN #15 tab PRN Reason: Abdominal Pain Hyoscyamine Sulfate [Levsin-Sl] 0.25 mg SL Q8H PRN #15 tab.subl PRN Reason: Abdominal Pain Ondansetron HCl [Zofran] 4 mg PO Q6H PRN #15 tablet PRN Reason: Nausea Home Medications: Ambulatory Orders Diclofenac Sodium 1 applic TOP DAILY PRN 08/18/18 [Last Taken Unknown] Duloxetine HCl [Cymbalta] 60 mg PO DAILY 08/18/18 [Last Taken Unknown] Hydroxyzine HCl 25 mg PO BID 08/18/18 [Last Taken Unknown] Hyoscyamine Sulfate [Levsin-Sl] 0.25 mg SL Q8H PRN #15 tab.subl 08/18/18 [Last Taken Unknown] Propranolol HCl 40 mg PO BID 08/18/18 [Last Taken Unknown] Hydrocodone/APAP 5/325Mg [[place] 5Mg/325Mg] 1 each PO Q4H PRN #15 tab 08/20/18 [ Last Taken Unknown] Ondansetron HCl [Zofran] 4 mg PO Q6H PRN #15 tablet 08/20/18 [Last Taken Unknown ] Discharge Plan - Discharge Instructions Activity at Discharge: Increase Activity as Tolerated Diet at Discharge: Advance to Usual Diet Instructions: Enteritis (ED) Additional Instructions: - Appointment with Dr. Samson (Gastroenterology) scheduled for August 21 at 12:45 at the [facility]. - Take the [place] as needed for pain. Do not mix this with Tylenol. - Take the Zofran as needed for nausea - Follow-up with Dr. Mane in 2 weeks Quality Measures - Quality Measures Quality Measures: Documentation of Current Medications in Medical Record, Screening for High Blood Pressure and F/U Documented - Current Medications Quality Measure: Measure #130: Documentation of Current Medications Documentation of Current Medications: <Current Medications Documented/Reviewed> [G8427] - Blood Pressure Screening Quality Measure: Screening for High Blood Pressure and Follow-Up Documented Does Patient Have Any of the Following: No Blood Pressure Classification: Normal BP Reading Systolic Measurement: 112 Diastolic Measurement: 72 Screening for High Blood Pressure: < Normal BP, F/U Not Required > [G8783] - Elder Abuse Suspicion Index EASI Reference Information: Agatha DIMAS, Matt C, Arden D, Solange Martinez.Development and validation of a tool to assist physicians identification of elder abuse: The Elder Abuse Suspicion Index (EASI ). Journal of Elder Abuse and Neglect, 2008; 20 (3): 276-300.
[2018-08-20 15:41] LABS: HEP A AB IGM Nonreactive (Nonreactive); HEPATITIS B CORE ANTIBODY,IGM Nonreactive (Nonreactive); HEPATITIS B SURFACE ANTIGEN Nonreactive (Nonreactive); HEPATITIS C VIRUS ANTIBODY Nonreactive (Nonreactive)
== END 2018-08-20 16:05 | disposition home or self-care (01) | DRG 392 ==
LOC: ER 05:15 → OBSVTOIN 08:59 → MEDSURG 08:59
PROVIDERS: ADMIT Internal Medicine; ATTEND Internal Medicine
DX: K52.9 Noninfective gastroenteritis and colitis, unspecified (principal); R19.7 Diarrhea, unspecified; I49.8 Other specified cardiac arrhythmias; M79.7 Fibromyalgia; Z90.49 Acquired absence of other specified parts of digestive tract
CPT/HCPCS: 74177; 76705; 80053; 81003; 81025; 83690; 85025; 86705; 86803; 87340; 96361; 96374; 96375; 96376; 99223; 99233; 99239; 99285; J1650; J2270; J2405; J2765; J7030

== ENCOUNTER 2018-12-01 16:55 | Emergency (ER) | payer BC ==
[2018-12-01] MEDS ORDERED: KETOROLAC 30 MG/ML VIAL IVP ONE (18:00)
[2018-12-01] MEDS ORDERED: ONDANSETRON HCL IV 4 MG/2 ML VIAL IVP ONE (18:00)
--- NOTE | 2018-12-01 18:05 | Emergency Department Record ---
History of Present Illness - General Chief Complaint: Abdominal Pain Stated Complaint: ABDOMINAL PAIN Time Seen by Provider: 12/01/18 17:59 Source: Patient Mode of Arrival: Ambulatory Limitations: No limitations - History of Present Illness Initial Comments: 28 yo female presents to ED for evaluation of epigastric abdominal pain that began this morning. Patient reports recent ERCP Friday at [facility], reports she was warned about possible post-procedure pancreatitis. Patient rates her pain at 7-8/10, radiates to her back. Patient denies fevers, chills, or vomiting symptoms. Patient denies change in stools or urinary symptoms. Patient is s/p cholecystectomy as well. MD Complaint: Abdominal pain Onset/Timin -: Days(s) Location: Epigastric Radiation: None Migration to: No migration Severity: Moderate Severity scale (1-10): 7 Quality: Sharp Consistency: Constant Improves With: Nothing Worsens With: Movement Associated Symptoms: Nausea - Related Data Patient : No Previous Rx's Medication Instructions Recorded Hydrocodone/Acetaminophen [Centrahoma 1 tab PO Q6H PRN #10 tab 12/01/18 5mg/325mg] Ondansetron [Zofran Odt] 4 mg PO Q6H PRN #15 tab.rapdis 12/01/18 Allergies Allergy/AdvReac Type Severity Reaction Status Date / Time amoxicillin Allergy HIVES Verified 12/01/18 17:34 Travel Screening - Travel/Exposure Within Last 30 Days Have you traveled within the last 30 days?: No Review of Systems Constitutional: Denies: Chills, Fever, Malaise, Night sweats ENT: Denies: Congestion, Ear pain, Epistaxis Respiratory: Denies: Cough, Dyspnea Cardiovascular: Denies: Chest pain, Dyspnea on exertion Endocrine: Denies: Fatigue, Heat or cold intolerance Gastrointestinal: Reports: Abdominal pain, Nausea. Denies: Vomiting Genitourinary: Denies: Incontinence, Retention Musculoskeletal: Reports: Back pain. Denies: Arthralgia, Gout, Joint swelling Skin: Denies: Bruising, Change in color Neurological: Denies: Abnormal gait, Confusion, Headache Psychiatric: Denies: Anxiety Hematological/Lymphatic: Denies: Anemia, Blood Clots Past Medical History - SOCIAL HISTORY Smoking Status: Never smoker Alcohol Use: Occasional Drug Use: None - RESPIRATORY Hx Respiratory Disorders: No - CARDIOVASCULAR Hx Cardio Disorders: Yes Comment:: POTS-postural tachycardia syndrome - NEURO Hx Neuro Disorders: Yes Hx Headaches: Yes - GI Hx GI Disorders: No - Hx Genitourinary Disorders: Yes Comment:: Ovarian cysts - ENDOCRINE Hx Endocrine Disorders: No - MUSCULOSKELETAL Hx Musculoskeletal Disorders: Yes Hx Fibromyalgia: Yes Comment:: HODGE - PSYCH Hx Psych Problems: Yes Hx Anxiety: Yes Hx Depression: Yes - HEMATOLOGY/ONCOLOGY Hx Hematology/Oncology Disorders: No Family Medical History Any Significant Family History?: Yes Hx HTN: Father, Grandparents Physical Exam - General General Appearance: Alert, Oriented x3, Cooperative, Moderate distress Limitations: No limitations - Head Head exam: Atraumatic, Normocephalic, Normal inspection Head exam detail: negative: Abrasion, Contusion, Macias's sign, General tenderness, Hematoma, Laceration - Eye Eye exam: Normal appearance. negative: Conjunctival injection, Periorbital swelling, Periorbital tenderness, Scleral icterus - ENT Ear exam: negative: Auricular hematoma, Auricular trauma Nasal Exam: negative: Active bleeding, Discharge, Dried blood Mouth exam: negative: Drooling, Laceration, Muffled voice, Tongue elevation - Neck Neck exam: Normal inspection. negative: Meningismus, Tenderness - Respiratory Respiratory exam: Normal lung sounds bilaterally. negative: Chest wall tenderness, Decreased breath sounds - Cardiovascular Cardiovascular Exam: Regular rate, Normal rhythm, Normal heart sounds - GI/Abdominal GI/Abdominal exam: Soft, Tenderness (TTP epigastric region, no rebound or guarding symptoms are present on examination.). negative: Rebound, Rigid - Rectal Rectal exam: Deferred - exam: Deferred - Extremities Extremities exam: Normal inspection. negative: Pedal edema, Tenderness - Back Back exam: Denies: CVA tenderness (R), CVA tenderness (L) - Neurological Neurological exam: Alert, Normal gait, Oriented X3 - Psychiatric Psychiatric exam: Normal affect, Normal mood - Skin Skin exam: Normal color. negative: Abrasion Type of lesion: negative: abrasion Course Vital Signs 12/01/18 17:31 Temperature 98.5 F Pulse Rate 90 Respiratory 20 Rate Blood Pressure 120/76 Pulse Ox 99 - Reevaluation(s) Reevaluation #1: 12/01/18 19:56 Laboratory studies were reviewed and are grossly unremarkable for an acute process. Following updated on all results without a clear etiology of her symptoms, re commend CT imaging to exclude a post-operative complication. Patient is in agreement with the plan of care as discussed. Patient reports improvement in her pain symptoms at this time. Reevaluation #2: 12/01/18 20:31 CT Abdomen and Pelvis: Mild edema retro-peritoneal and uncinate process of the pancreas Findings appear c/w mild pancreatitis CBD is not dilated. Patient was updated on all results, discussed outpatient vs. inpatient treatment. Patient would prefer outpatient treatment. Will prescribe Centrahoma as needed for her pain symptoms with instructions to return to the ED for worsening pain or inability to tolerate PO. Patient appears stable for discharge at this time. Medical Decision Making - Lab Data Result diagrams: 12/01/18 18:10 12/01/18 18:10 Disposition Disposition: Discharge Clinical Impression: Pancreatitis Qualifiers: Chronicity: acute Pancreatitis type: unspecified pancreatitis type Acute pancreatitis complication: unspecified Qualified Code(s): K85.90 - Acute pancreatitis without necrosis or infection, unspecified Disposition: Home, Self-Care Condition: (2) Stable Instructions: Pancreatitis (ED) Additional Instructions: Return to ED if your symptoms worsen or if you have any concerns. Centrahoma and Zofran as directed. Follow-up with your family doctor in 3-5 days as directed. Prescriptions: Hydrocodone/Acetaminophen [Centrahoma 5mg/325mg] 1 tab PO Q6H PRN #10 tab PRN Reason: Pain - General Ondansetron [Zofran Odt] 4 mg PO Q6H PRN #15 tab.rapdis PRN Reason: Nausea/Vomiting Forms: Patient Portal Access Time of Disposition: 20:34 Quality - Quality Measures Quality Measures: N/A - Blood Pressure Screening Does Patient Have Any of the Following: No Blood Pressure Classification: Pre-Hypertensive BP Reading Systolic Measurement: 120 Diastolic Measurement: 76 Screening for High Blood Pressure: < Pre-Hypertensive BP, F/U Documented > [G8950] Pre-Hypertensive Follow-up Interventions: Referral to alternative/primary care provider.
[2018-12-01 18:20] LABS: BASO % 0.1 % (0-6); EOS % 1.4 % (0-6); HEMOGLOBIN 12.8 gm/dl (11.6-16.0); LYMPH % 24.9 % (16-45); MEAN CELL VOLUME 92.5 fl (81-97); MEAN CORPUSCULAR HEMOGLOBIN 31.1 pg (27-33); MEAN CORPUSCULAR HGB CONC 33.7 g/dl (32-36); MEAN PLATELET VOLUME 9.4 fl (7.4-10.4); MONO % 8.6 % (0-9); PLATELET COUNT 308 K/uL (130-400); RED BLOOD COUNT 4.11 M/uL (3.80-5.40); RED CELL DISTRIBUTION WIDTH 13.1 % (11.5-14.5); WHITE BLOOD COUNT W/O DIFF 7.7 K/uL (4.2-12.2)
[2018-12-01 18:33] LABS: BLOOD UREA NITROGEN 6 mg/dL (6-20); CREATININE 0.6 mg/dL (0.5-0.9); EST GLOMERULAR FILTRATION RATE > 60 mL/min
[2018-12-01 18:34] LABS: LIPASE 74 U/L (13-60); TOTAL PROTEIN 6.8 g/dL (6.6-8.7)
[2018-12-01 18:36] LABS: GLUCOSE,RANDOM 94 mg/dL (74-109)
[2018-12-01 18:38] LABS: ALT/SGPT 16 U/L (<33)
[2018-12-01 18:39] LABS: ALB/GLOB RATIO 1.4 (1.1-1.8); ALKALINE PHOSPHATASE 70 U/L (35-104); AST/SGOT 18 U/L (10.0-35.0)
[2018-12-01] MEDS ORDERED: MAGNESIUM HYDROXIDE/AL HYDROX 30 ML, LIDOCAINE VISC 2% 15ML 15 ML PO ONE ×2 (20:12)
[2018-12-01] MEDS ORDERED: HYDROCODONE/APAP 5/325MG TABLET PO ONE (20:41)
--- NOTE | 2018-12-03 08:40 | CT SCAN REPORT ---
EXAM: CT OF THE ABDOMEN AND PELVIS WITH CONTRAST HISTORY: EPIGASTRIC PAIN THAT STARTED EARLIER TODAY WITH NAUSEA. RECENT ERCP ON FRIDAY. TECHNIQUE: Standard CT imaging of the abdomen and pelvis was obtained after IV contrast. Comparison: 08/18/18. FINDINGS: The lung bases are clear. The liver appears normal. The gallbladder has been resected. The common bile duct is normal in caliber. The pancreas appears normal. The spleen is normal in size. The adrenal glands are normal. The kidneys appear normal with symmetric excretion of contrast on delayed imaging. The stomach and small bowel are unremarkable. No bowel dilatation. The bladder is unremarkable. No pelvic masses are identified. There is a large amount of stool throughout the colon. No pericolonic inflammation. The appendix is normal. No enlarged retroperitoneal mesenteric adenopathy. The aorta is normal in caliber. There is mild edema in the retroperitoneum centered around the superior mesenteric artery, and also involving the uncinate process of the pancreas. These findings raise the possibility for mild pancreatitis. There is no peripancreatic fluid collection. IMPRESSION: EDEMA IN THE RETROPERITONEUM AND NEAR THE UNCINATE PROCESS OF THE PANCREAS RAISING THE POSSIBILITY FOR MILD ACUTE PANCREATITIS. NO DISCRETE FLUID COLLECTION. JOB NUMBER: [id number] [facility]
== END 2018-12-01 20:49 | disposition home or self-care (01) ==
LOC: ER 16:55
DX: K85.90 Acute pancreatitis without necrosis or infection, unspecified (principal); R11.0 Nausea
CPT/HCPCS: 74177; 80053; 83690; 84703; 85025; 96374; 96375; 99284; J1885; J2405